=== PATIENT | male | born 1950 | race Caucasian/White ===

== ENCOUNTER 2023-09-06 07:41 | Outpatient (CLI) | payer MEDICARE, BC | END 2023-09-06 07:42 | disposition home or self-care (01) | LOC: BICULT 07:41 | PROVIDERS: ATTEND Internal Medicine | DX: K82.4 Cholesterolosis of gallbladder (principal); R93.2 Abnormal findings on diagnostic imaging of liver and biliary tract | CPT/HCPCS: 76705 ==